=== PATIENT | female | born 1965 | race Caucasian/White ===

== ENCOUNTER 2024-10-03 09:54 | Emergency (ER) | payer OTHER, SELFPAY ==
[2024-10-03 10:00] VITALS: BP 118/67
--- NOTE | 2024-10-03 11:05 | ED.MUSCINJ ---
HPI-Injury
General
Chief Complaint: Musculo-Skeletal Complaint
Source: patient
Exam Limitations: none
Time Seen by Provider: 10/03/24 10:52
History of Present Illness-Injury
Initial Injury comments:
59-year-old [id number] female presents complaining of left wrist pain starting yesterday. She accidentally struck the ulnar aspect of her wrist on a plastic flowerpot. Since then she has had increased swelling and pain. She does have a
remote history of a distal radius fracture requiring open reduction internal fixation. No other complaints at this time
Phy Exam
Physical Exam
Physical Exam:
General: Well-appearing female no acute respiratory distress
HEENT normocephalic atraumatic
Musculoskeletal exam: Left wrist swollen tender over the ulnar aspect of the wrist. Significant deformity. Good passive range of motion.
Injury Course
Orders/Labs/Results
Orders:
Orders
10/03/24 10:06
CR Hand - Left Min 3 Views Urgent
Comment:
Reason For Exam: pain, injury also pain in lateral wrist
10/03/24 11:03
[place] Wrist Left-Treatment ONCE
MDM/Problems Addressed
Differential Diagnosis Includes:
Left wrist pain after direct trauma. Consider contusion versus fracture versus sprain
I personally visualized x-rays of the left wrist which were negative for acute finding. Suspect underlying contusion. [place] wrist splint applied will advise follow-up for symptoms
*Critical Care Note
Total Time (30-74mins, 75-104mins- exclusive of procedures): Not Applicable
ED Attending Note
-
Portions of this chart may have been created with voice recognition software.� Occasional wrong word or��sound alike� substitutions may have occurred due to the inherent limitations of voice recognition software.
Discharge Plan
Departure
Patient Disposition: Home (Routine Discharge)
Date of Disposition: 10/03/24
Time of Disposition: 11:08
Patient with high blood pressure during this ER visit?: No
Discharge Problem:
Contusion
Instructions: Contusion (DC)
Referrals:
UNKNOWN - PT DOES,NOT KNOW [Family Provider]
Activity Restrictions/Additional Instructions:
Use brace for support. Use ibuprofen or Tylenol for pain peer return if worse otherwise follow-up with your hand specialist if symptoms persist
Discharge Date and Time
Print Language: MALAY
[2024-10-03 12:23] VITALS: BP 105/77
== END 2024-10-03 12:24 | disposition home or self-care (01) ==
LOC: EMR 09:54
PROVIDERS: EMERGENCY PHYSICIAN Emergency Medicine
DX: S60.212A Contusion of left wrist, initial encounter (principal); W22.8XXA Striking against or struck by other objects, initial encounter
CPT/HCPCS: 29125; 99283; 73130

== ENCOUNTER 2025-03-08 15:37 | Emergency (ER) | payer OTHER, SELFPAY ==
[2025-03-08 15:54] VITALS: BP 137/87
[2025-03-08 16:10] LABS: Hematocrit 40.9 % (37.0-47.0); Hemoglobin 13.3 g/dL (12.0-16.0); Mean Corp Hgb Conc. 32.5 g/dL (33.0-37.0); Mean Corpuscular Volume 93.6 fL (81.0-99.0); Nucleated Red Blood Cells % 0 %; Platelet Count 298 10^3/uL (130-400); Red Cell Dist. Width 12.1 % (11.5-14.5)
[2025-03-08 16:22] LABS: INR 1.00; PT 13.5 Sec (11.4-14.6)
[2025-03-08 16:23] LABS: APTT 26.3 Sec (23.4-35.0)
[2025-03-08 16:32] LABS: ALT (SGPT) 23 U/L (0-35); AST (SGOT) 29 U/L (14-36); Albumin 4.5 g/dl (3.5-5.0); Alkaline Phosphatase 54 U/L (38-126); Blood Urea Nitrogen 18 mg/dl (7-17); Calcium 10.0 mg/dl (8.4-10.2); Carbon Dioxide 31 mmol/L (22-30); Chloride 103 mmol/L (98-107); Glucose 97 mg/dl (70-99); Potassium 4.0 mmol/L (3.5-5.1); Sodium 139 mmol/L (135-145); Total Protein 6.6 g/dl (6.3-8.2); eGFR > 60.00
[2025-03-08 16:39] VITALS: BP 123/77
[2025-03-08 16:43] LABS: Troponin I < 0.012 ng/ml
[2025-03-08 17:00] VITALS: BP 128/85
[2025-03-08 17:20] VITALS: BMI 20.6
--- NOTE | 2025-03-08 17:48 | ED.GENMED ---
History of Present Illness
General
Chief Complaint: Chest Pain
Source: patient
Exam Limitations: none
Time Seen by Provider: 03/08/25 16:35
Nursing documentation reviewed up to this point in time: agreed with
History of Present Illness
History of Present Illness:
59-year-old female presents to the ER complaining of indigestion palpitations and chest pain for the past 2 days. Patient reports that she started with cold symptoms on Sunday, head congestion and cough. She does admit to having several
coughing fits. For the past 2 days however she has had some pressure in her chest and shortness of breath more with walking. She feels that the pressure in her chest has been constant but when she thinks about it it gets worse. She has no history
of CAD. She has seen a dish up person in [facility] because of vasovagal episodes and had a normal echo and stress test. She reports the echo showed mild mitral regurgitation.
she just saw the dish up person last week. She does not smoke. No prior DVT PE. She is on Estradiol patch.
Phy Exam
General Physical Exam
General Presentation: no apparent distress
General age: appears stated age
General Skin: warm and dry
General Habitus: normal
General Mental: alert
General Hydration: appears well hydrated
Cardiovascular Exam
Cardiovascular Exam: regular rate/rhythm, no murmur and normal peripheral pulses
Pulmonary Exam
Pulmonary Exam: lungs clear and no respiratory distress
Neurological Exam
Neurological Exam: alert and oriented x3
Musculoskeletal Exam
Musculoskeletal Exam: full ROM
Skin Exam
Skin Exam: normal color and warm/dry
Psychiatric Exam
Psychiatric Exam: normal mood/affect
Scores
Heart Score for Chest Pain Patients
STEMI patient?: Not applicable
Course
Orders/Labs/Results
Orders:
Orders
03/08/25 15:39
Electrocardiogram (*1) Urgent
Reason for Study: Chest Pain
EKG- Treatment ONCE
03/08/25 15:58
Chest [CR Chest - 2 Views ] Urgent
Comment:
Reason For Exam: CP, SOB
03/08/25 16:00
Complete Blood Count/With Diff Urgent
Comprehensive Metabolic Panel Urgent
PT/INR [Prothrombin Time] Urgent
PTT Urgent
Troponin I Urgent
03/08/25 18:20
DDimer [D-Dimer] Urgent
Abnormal Lab Results
03/08/25
16:00
MCHC 32.5 L g/dL
(33.0-37.0)
Carbon Dioxide 31 H mmol/L
(22-30)
BUN 18 H mg/dl
(7-17)
03/08/25 16:00
03/08/25 16:00
Vital Signs
Initial and Last Documented VS:
Initial Vital Signs
Temp Pulse Resp BP Pulse Ox
98.1 F 70 18 137/87 98
03/08/25 15:54 03/08/25 15:54 03/08/25 15:54 03/08/25 15:54 03/08/25 15:54
Last Documented Vital Signs
Temp Pulse Resp BP Pulse Ox
98.1 F 70 16 135/81 99
03/08/25 15:54 03/08/25 18:00 03/08/25 18:00 03/08/25 18:00 03/08/25 18:00
MDM/Problems Addressed
Differential Diagnosis Includes:
Not limited to musculoskeletal
MDM/Problems Addressed:
Patient is a 59-year-old female who has had cold symptoms and also has had some chest pain and shortness of breath for the past several days. She is asymptomatic presently in no acute distress she has a present dish up person for vasovagal and had a
normal echo except for mild mitral regurg. She is very well-appearing nontachycardic not hypoxic lungs are clear D-dimer and cardiac troponin are negative chest x-ray is unremarkable no acute findings and EKG.
Possible muscular from coughing. Stable for discharge home with outpatient follow up
*Radiology
Radiology exam reviewed: radiology read reviewed
*Pulse Oximetry
SaO2: 97
Oxygen Mode of Delivery: Room air
Patient hypoxic: no
*EKG
Interpreted by ED Provider?: Yes
Heart Rate: 58
Rate: bradycardiac
Rhythm: sinus
Ischemia: no ischemia
*Critical Care Note
Total Time (30-74mins, 75-104mins- exclusive of procedures): Not Applicable
ED Attending Note
-
Portions of this chart may have been created with voice recognition software.� Occasional wrong word or��sound alike� substitutions may have occurred due to the inherent limitations of voice recognition software.
Discharge Plan
Departure
Patient Disposition: Home (Routine Discharge)
Date of Disposition: 03/08/25
Time of Disposition: 20:06
Patient with high blood pressure during this ER visit?: Yes
Condition: Fair
Covid-19: Not Applicable
Discharge Problem:
Chest pain
Instructions: Chest Pain NON-[facility] [employer] Follow Up, BLOOD PRESSURE
Referrals:
UNKNOWN - PT DOES,NOT KNOW [Family Provider]
Activity Restrictions/Additional Instructions:
Follow-up with your family doctor in dish up person for reevaluation.
Return if any worsening of symptoms
Interventions
Interventions:
*Risk Screen - Suicide Last Done: 03/08/25 17:20
*General Assessment Last Done: 03/08/25 17:20
*Neglect/Abuse Screening Last Done: 03/08/25 17:20
*ED- Fall Risk Assessment Last Done: 03/08/25 17:20
*ED COVID-19 Vaccine History Last Done: 03/08/25 17:20
*ED Influenza Vaccine History Last Done: 03/08/25 17:20
ED- Cardiac Assessment Last Done: 03/08/25 17:20
Discharge Date and Time
Print Language: TELUGU
--- NOTE | 2025-03-08 17:48 | EDRN ---
Pt states she arrives for L chest pressure over all L chest at 4-5/10 that started 2 days ago. Pt states she had cold like symptoms (of sl cough, no fever, congestion, fatigue, weakness and 2 negative COVID tests) on Sunday and then developed
these symptoms. Pt also adds she has not been getting enough sleep and awakening several times w/ symptoms of gasping for air, palpitations, and air hunger w/ dry throat. The awakening frequently started recently and she saw her PCP who said she
needs a sleep apnea test.
[2025-03-08 18:00] VITALS: BP 135/81
[2025-03-08 18:44] LABS: D-Dimer < 0.27 ug/mlFEU (0.00-0.50)
[2025-03-08 19:20] VITALS: BP 118/69
[2025-03-08 20:00] VITALS: BP 118/74
== END 2025-03-08 20:53 | disposition home or self-care (01) ==
LOC: EMR 15:37
PROVIDERS: Nurse Practitioner; EMERGENCY PHYSICIAN Student in an Organized Health Care Education/Training Program
DX: R07.9 Chest pain, unspecified (principal); R00.2 Palpitations; R05.9 Cough, unspecified
CPT/HCPCS: 99285; 71046; 80053; 84484; 85025; 85379; 85610; 85730; 93005

== ENCOUNTER → 2025-04-01 09:40 | Outpatient (REF) | payer OTHER, SELFPAY | LOC: WDC 09:40 | PROVIDERS: ATTENDING PHYSICIAN Obstetrics & Gynecology Gynecology | DX: N64.4 Mastodynia (principal) | CPT/HCPCS: 76642; 77062; 77066 ==